=== PATIENT | male | born 1975 ===

== ENCOUNTER 2016-11-27 06:15 | Emergency (ER) | payer MEDICARE ==
[~2016-11-27 06:15] MED LIST: VIAG100T PO
[2016-11-27 06:37] VITALS: BP 125/78; PULSE 72; RESP 16; TEMP 98.1; O2SAT 100
--- NOTE | 2016-11-27 06:42 | PD ---
HPI Chief Complaint: psychiatric evaluation Time Seen by Provider: 06:37 Travel History International Travel<30 days: No Contact w/Intl Traveler<30days: No History of Present Illness HPI Patient comes as a transfer from [facility] for psychiatric evaluation after an intentional overdose. Patient was accepted by the psychiatrist however there are no beds available currently on the psychiatric unit for the patient and was brought in the emergency department instead. Patient denies any medical concerns or complaints at this time. Patient does admit that he did intentionally overdosed yesterday trying to kill himself. Denies any chest pain, shortness breath, fevers, abdominal pain, or other concerns at this time. PFSH Past Medical History Narrative Medical Muscular dystrophy Social History Alcohol Use: Yes Tobacco Use: No Substance Use: No Allergies-Medications (Allergen,Severity, Reaction): Coded Allergies: No Known Allergies (Unverified , 11/27/16) Reported Meds & Prescriptions Reported Meds & Active Scripts Active Viagra (Sildenafil Citrate) 100 Mg Tab 100 Mg PO DAILY PRN Review of Systems Except as stated in HPI: all other systems reviewed are Neg Physical Exam Narrative GENERAL: Well-developed, well nourished, in no acute distress, and non-ill appearing. SKIN: Focused skin assessment warm and dry. HEAD: Atraumatic. Normocephalic. EYES: Pupils equal and round. EOMI. No scleral icterus. No injection or drainage. ENT: No nasal bleeding or discharge. Mucous membranes pink and moist. NECK: Trachea midline. Supple. No nuclear rigidity. CARDIOVASCULAR: Regular rate and rhythm. No murmur appreciated. RESPIRATORY: No accessory muscle use. No respiratory distress. Clear to auscultation. Breath sounds equal bilaterally. NEUROLOGICAL: Awake and alert. No obvious cranial nerve deficits. Motor grossly within normal limits. Normal speech. PSYCHIATRIC: Appropriate mood and affect; insight and judgment normal. MDM Medical Decision Making Medical Screen Exam Complete: Yes Emergency Medical Condition: Yes Differential Diagnosis Psychiatric evaluation, intentional overdose, electrolyte abnormality, other Narrative Course Patient was seen and examined. Labs were reviewed from previous facility within each repeat labs here in the ED. Patient medically cleared for further treatment and evaluation by psych. Final disposition per psych. Diagnosis Primary Impression: Medical clearance for psychiatric admission Condition: Stable Anuj Whyte Nov 27, 2016 06:42
[2016-11-27] MEDS ORDERED: OXYC30TA PO (06:43)
[2016-11-27 07:00] VITALS: BP 118/72; PULSE 74; RESP 16; TEMP 98; O2SAT 100
[2016-11-27 15:44] VITALS: BP 124/80; PULSE 82; RESP 18; TEMP 97.6; O2SAT 96
--- NOTE | 2016-11-27 18:26 | PD ---
History of Present Illness Chief Complaint: Psychiatric Symptoms Time Seen by Provider: 17:50 Travel History International Travel<30 Days: No Contact w/Intl Traveler<30days: No Known affected area: No Legal Status Legal Status: Mckeon Act Mckeon Act Signed By: Dia Vásquez Mckeon Act Comment: [employer]PUT[employer] SANCHEZ #[id number] History of Present Illness: History of Present Illness HPI Patient is a 41 year old male who comes as a transfer from [facility] on a Mckeon Act after an intentional overdose of pain medication, Xanax and possibly some alcohol. The patient was found buy his in their home after an alleged overdose of pain medication. The BA also alleges that there was a box repairer near him. He did not use the box repairer to injure himself. Patient does admit that he did intentionally overdosed yesterday trying to kill himself after he was involved in an argument with his over a divorce that was initiated by her four years ago. The couple continues to share the home they own and he reports that they frequently engage in verbal arguments. This last argument was different in that she told him that she is ready to end the process and end the marriage. He had consumed some alcohol prior to taking the overdose and he denies that he had planned to kill himself or that he had been experiencing any significant depression. Documentation from [facility] is reviewed. EMR is reviewed. There are no previous contacts with [facility] [place]. The patient was monitored in secure setting and he presented no suicidality and no behavioral concerns. The patient is seen with Puja LY. He is alert, oriented male who appears stated age. he is maintaining hygiene. He is calm and cooperative. Speech is clear and logical. There is no psychosis, no david and no hypomania. There is no significant symptom of depression or anxiety observed or reported. He denies that he has any intention of harming himself or anyone else and that the overdose was an impulsive act in context of the argument and his frustration. He denies any previous history of psychiatric care and no previous suicide attempts or suicidal gestures. he is at this time requesting discharge and plans on staying with a cousin who is supportive and who is willing to have him stay with her.. Telephone call to Michelle Dominic with patient's consent at [phone]. She reports that she is aware of his recent overdose and feels comfortable if he were discharged. She will pick him up and he will stay with her. PFSH Past Medical History Musculoskeletal: Yes (MUSCULAR DYSTROPHY) Psychiatric: Yes Past Surgical History Body Medical Devices: LEG BRACES Psychiatric History Psychiatric History Hx Psychiatric Treatment: No formal psychaitric treatmetn. History of Inpatient Treatment: No Guns or firearms in home: No Social History Born in [place]. Moved to [place] 20 years ago. Completed 2 years of college. Disabled. x 21 years. Has 4 children Hx Alcohol Use: Yes Hx Tobacco Use: No Hx Substance Use: No Substance Use Type: Alcohol Other Substances Used: OCCASIONAL DRINK Hx of Substance Use Treatment: No Family Psychiatric History Grandmother adn mother with unspecified illness Allergies-Medications (Allergen,Severity, Reaction): Coded Allergies: No Known Allergies (Unverified , 11/27/16) Reported Meds & Prescriptions Reported Meds & Active Scripts Active Viagra (Sildenafil Citrate) 100 Mg Tab 100 Mg PO DAILY PRN Reported Oxycodone (Oxycodone HCl) 30 Mg Tab 30 Mg PO Q6H PRN Review of Systems Except as stated in HPI: all other systems reviewed are Neg Neurologic: COMPLAINS OF: Abnormal gait, Poor Balance Exam Alert: Yes [place]: Person (ox4) Mood: Calm Affect: Appropriate Speech: Clear, Logical Eye Contact: Normal Memory Intact: Comment (no impairmetn) Hallucinations: Other (negative) Delusions: No Suicidal: Ideation (deneis any) Homicidal: Ideation (deneis any) Insight/Judgement Fair. Not impaired [facility] Medical Decision Making Medical Record Reviewed: Yes Assessment/Plan [age] year old male who presents as a transfer from [facility] on a [place]on Act after an intentional overdose. Patient does admit that he did intentionally overdosed yesterday trying to kill himself after he was involved in an argument with his over a divorce that was initiated by her four years ago. He was monitored and presented no suicidal or homicidal ideation, intent or plan. He contracts for safety and has a plan to stay with a supportive person until he and his can figure out the next step. He agrees to return to the ED if any changes in his conduition. Orders Diet Regular Basic (11/27/16 Breakfast) Psych Screen (11/27/16 10:38) Diet Regular Basic (11/27/16 Dinner) Results Vital Signs Date Time Temp Pulse Resp B/P Pulse Ox O2 Delivery O2 Flow Rate FiO2 11/27/16 07:00 98.0 74 16 118/72 100 Room Air 11/27/16 06:37 98.1 72 16 125/78 100 Diagnosis Primary Impression: Medical clearance for psychiatric admission Additional Impression: Adjustment disorder Med/ Other Pt Specific Info: No Change to Meds Disposition: 01 DISCHARGE HOME Condition: Stable Problem Qualifiers Additional Impression: Adjustment disorder Qualified Code: F43.22 - Adjustment disorder with anxious mood Juani MadrigalP Nov 27, 2016 18:26
[2016-11-27 18:35] VITALS: BP 118/72; TEMP 98.2
== END 2016-11-27 19:03 | disposition home or self-care (01) ==
LOC: NEPD 06:15 → NEPJ 19:03
DX: F43.22 Adjustment disorder with anxiety (principal)
CPT/HCPCS: 99283